=== PATIENT | female | born 1960 | race Caucasian/White ===

== ENCOUNTER 2018-12-27 21:07 | Observation (INO) | payer BC, OTHER ==
[~2018-12-27] VITALS: Ht 165.1 cm; Wt 62.6 kg
[~2018-12-27 21:07] MED LIST: ESTROGEN PO; LISINOPRIL10 MG PO
--- OUTSIDE RECORDS SUMMARY | 2018-12-27 21:10 | XMS REPORT | Clinical Summary ---
Author Author [facility] Address Unknown Phone Unavailable Care Team Providers Care Postdoctoral Fellow Name Role Phone Asked, No Pcp PCP Unavailable Allergies No Known Allergies Medications End Date Status Medication Sig Dispensed Refills Start Date Active DOCOSAHEXANOIC ACID/EPA Take by 0 (FISH OIL ORAL) mouth. Active OMEGA-3S/DHA/EPA/FISH Take by 0 OIL/D3 (VITAMIN-D + mouth. OMEGA-3 ORAL) Active micafungin (MYCAMINE) 100 Infuse into a 0 mg recon soln venous catheter daily. Active lisinopril TK 1 T PO QD 3 (PRINIVIL,ZESTRIL) 20 mg 7 tablet Active amLODIPine (NORVASC) 2.5 TK 1 T PO 3 mg tablet ONCE D 7 Active estradiol (ESTRACE) 0.5 Take 1 tablet 90 tablet 3 MG tabletIndications: (0.5 mg 8 Vasomotor flushing total) by mouth daily. Active PROCTOZONE-HC 2.5 % Insert into 28.35 g 4 rectal creamIndications: the rectum as 8 Hemorrhoids, unspecified needed for hemorrhoid type hemorrhoids. Active Problems Not on file Encounters Care Team Description Date Type Specialty Marylou Jiménez RN History of abnormal mammogram (Primary Dx) 06/09/2018 Orders Only Obstetrics and Gynecology Mago Velázquez RN Breast asymmetry (Primary Dx) 12/27/2017 Telephone Obstetrics and Gynecology after 12/26/2017 Family History Medical History Relation Name Comments Diabetes Father Heart disease Father Hypertension Father Kidney failure Father Migraines Mother Ulcers Mother Relation Name Status Comments Father Mother Social History Date Tobacco Use Types Packs/Day Years Used Never Smoker Smokeless Tobacco: Never Used Alcohol Use Drinks/Week oz/Week Comments Yes RARE Sex Assigned at Date Recorded Not on file Industry Job Start Date Occupation Not on file Not on file Not on file Travel End Travel History Travel Start No recent travel history available. Last Filed Vital Signs Not on file Plan of Treatment Health Maintenance Due Date Last Done Comments CERVICAL CANCER SCREENING 1983 COLON CANCER SCREENING 2012 SHINGLES VACCINES (#1) 2012 INFLUENZA VACCINE 05/24/2018 BREAST CANCER SCREENING 12/01/2019 12/01/2017, 11/22/2016 Results Not on fileafter 12/26/2017 Insurance Payer Benefit Subscriber ID Type Phone Address Plan / Group BCBS BCBS xxxxxxxxxxxx PPO CHOICE PPO/RYDER [place]CALA PPO Advance Directives Patient has advance care planning documents on file. For more information, negro marc contact: Jason Dooley [address] [place] [address]
[2018-12-27] MEDS ORDERED: KETOROLAC TROMETHAMINE 30 MG/ML VIAL IV STA (21:27)
[2018-12-27] MEDS ORDERED: ONDANSETRON HCL INJ 2MG/ML 2ML 2 MG/ML VIAL IV STA (21:27)
[2018-12-27] MEDS ORDERED: SODIUM CHLORIDE 0.9% 1000ML 1,000 ML IV SCH ×3 (21:30→23:45)
--- NOTE | 2018-12-27 22:23 | Diagnostic Imaging Report ---
EXAM: CT Abdomen and Pelvis WITHOUT contrast INDICATION: Left-sided back pain. ^[id number] ^[id number] COMPARISON: None. TECHNIQUE: Abdomen and pelvis were scanned utilizing a multidetector helical scanner from the lung base to the pubic symphysis without administration of IV contrast. Absence of intravenous contrast decreases sensitivity for detection of focal lesions and vascular pathology. Coronal and sagittal reformations were obtained. Routine protocol was performed. IV CONTRAST: None ORAL CONTRAST: Water COMPLICATIONS: None RADIATION DOSE: Total DLP: 488.4 mGy*cm Estimated effective dose: (DLP x 0.015 x size factor) mSv Dose modulation, iterative reconstruction, and/or weight based adjustment of the mA/kV was utilized to reduce the radiation dose to as low as reasonably achievable. FINDINGS: LINES and TUBES: None. LOWER THORAX: Unremarkable HEPATOBILIARY: No focal hepatic lesions. No biliary ductal dilation. GALLBLADDER: No radio-opaque stones or sludge. No wall thickening. SPLEEN: No splenomegaly. PANCREAS: No focal masses or ductal dilatation. ADRENALS: No adrenal nodules KIDNEYS/URETERS: Mild left hydronephrosis secondary to a 0.7 x 0.7 x 0.6 cm stone ureteral pelvic junction with associated inflammatory stranding. Additional nonobstructing 0.2 cm left superior pole and 0.2 cm left inferior pole calculi. No right hydronephrosis or right-sided stones. No cystic or solid mass lesions. GI TRACT: No abnormal distention, wall thickening, or evidence of bowel obstruction. There are diverticula within the colon without evidence of diverticulitis. Appendix is not clearly identified. There is however no fat stranding or adenopathy in the right lower quadrant to suggest appendicitis. PELVIC ORGANS/BLADDER: Hysterectomy. Otherwise, unremarkable. LYMPH NODES: No lymphadenopathy. VESSELS: Unremarkable. PERITONEUM / RETROPERITONEUM: No free air. Fluid and stranding tracking along the left retroperitoneum. BONES: There are degenerative changes in the lumbar spine. SOFT TISSUES: Right gluteal injection granuloma. IMPRESSION: 1. Obstructing 0.7 cm calculus in the left ureteropelvic junction causing mild left hydronephrosis. 2. Additional nonobstructing left renal calculi. 3. Colonic diverticulosis. Signed by: DR. Maurilio Aguirre MD on 12/27/2018 10:20 PM
[2018-12-27] MEDS ORDERED: ULTRAM 50MG50 MG PO (22:32)
[2018-12-27] MEDS ORDERED: KETOROLAC TROME10 MG PO (22:32)
[2018-12-27] MEDS ORDERED: FLOMAX0.4 MG PO (22:32)
[2018-12-27] MEDS ORDERED: ONDANSETRON ODT8 MG PO (22:32)
[2018-12-27] MEDS ORDERED: BACTRIM DS TAB1 EACH PO (23:24)
[2018-12-27] MEDS ORDERED: CEFTRIAXONE SOD 1 GM/NS 50 ML 50 ML IV ONE (23:30)
[2018-12-27] MEDS ORDERED: HYDROCODONE/APAP 5MG-325MG TAB PO ONE (23:30)
[2018-12-28] VITALS (7 sets, daily range): BP systolic 118–182; BP diastolic 74–106
[2018-12-28] MEDS ORDERED: D5.45%NS/KCL 20MEQ 1,000 ML IV SCH (00:07)
--- NOTE | 2018-12-28 01:30 | NUR ---
Admitted to room 182 from [facility] via stretcher. Alert to person, place, time, and situation. Skin warm and intact. c/o 9/10 left flank, stabbing. PERRLA. Cap refill <3 secs, +2 bilateral hand brasswind instrument repairer. +Pedal pulse. Last BM 3/6, brown,formed, hard. Last 2 BM hard. Urine tamra without odor. Abdomen soft and nontender. Bowel sounds active x4. Oriented to room. Bed low and locked. Call simpson within reach. Will continue to monitor.
--- OUTSIDE RECORDS SUMMARY | 2018-12-28 01:40 | XMS REPORT | Clinical Summary ---
Author Author [facility] Address Unknown Phone Unavailable Care Team Providers Care Mandrel Press Hand Name Role Phone Asked, No Pcp PCP [...] Dx) 12/27/2017 Telephone Obstetrics and Gynecology after 12/27/2017 Family History Medical History Relation Name Comments [...] 12/01/2019 12/01/2017, 11/22/2016 Results Not on fileafter 12/27/2017 Insurance Payer Benefit Subscriber ID Type Phone Address Plan / Group BCBS BCBS xxxxxxxxxxxx PPO CHOICE PPO/RYDER ALCALA PPO Advance Directives Patient has advance care planning documents on file. For more information, negro marc contact: Jason Dooley [address] [place] [address]
[2018-12-28] MEDS ORDERED: CRESTOR5 MG (01:48)
[2018-12-28] MEDS ORDERED: AMLODIPINE BESY10 MG PO (01:48)
[2018-12-28] MEDS ORDERED: LISINOPRIL10 MG PO (01:48)
[2018-12-28] MEDS: ONDANSETRON HCL INJ 2MG/ML 2ML 2 MG/ML VIAL IV PRN ×2 (02:00→06:29)
[2018-12-28] MEDS: MORPHINE SULFATE INJ 4 MG/ML INJ 1ML IV PRN ×2 (02:00→06:29)
--- NOTE | 2018-12-28 06:09 | NUR ---
Spoke with Dr. Rodriguez regarding consult for Renal colic.
[2018-12-28] MEDS ORDERED: IOPAMIDOL 610MG/1ML 300 MG/ML VIAL IV ONE (07:51)
[2018-12-28] MEDS ORDERED: BELLADONNA/OPIUM 30 MG SUPP RC ONE (07:51)
[2018-12-28] MEDS ORDERED: AMLODIPINE BESYLATE 10 MG TAB PO SCH (09:00)
[2018-12-28] MEDS ORDERED: LISINOPRIL 10 MG TAB PO SCH (09:00)
--- NOTE | 2018-12-28 11:14 | History and Physical ---
IDENTIFYING DATA: This is a 58-year-old female who comes in with left-sided flank pain. HISTORY OF PRESENTING ILLNESS: Ms. Mechelle Torres with a history of hypertension, hyperlipidemia, was in usual state of health until two days prior to admission, the patient started at night with left-sided flank pain. Drank enough water and knew it was more of a kidney pain and she said she did not pass any stones, came in the emergency room, was found to have a 0.7 cm stone in the left ureter with obstruction and was admitted for pain control and also for left kidney stones. The patient does see a urologist in [place]. PAST MEDICAL HISTORY: History of hypertension, history of hyperlipidemia. PAST SURGICAL HISTORY: Includes history of hysterectomy, history of repair. FAMILY HISTORY: Positive for CAD and carotid artery disease in the family and also CVA in her father. SOCIAL HISTORY: No EtOH, no IV drug abuse, and no history of smoking either. REVIEW OF SYSTEMS: Negative for chest pain. Negative for shortness of breath. Positive for nausea and vomiting. No diarrhea. No constipation. No rectal bleeding. No hematochezia. No hematemesis. No hematuria either. PHYSICAL EXAMINATION: VITAL SIGNS: Temperature is 98.6, pulse of 77, blood pressure is 160/95, pulse oximetry of 97% on room air. HEENT: Normocephalic, atraumatic. No icterus present. CVS: S1, S2 normal. Regular rhythm. ABDOMEN: Tender in the left flank and also in the left lower quadrant. BACK: Positive CVA tenderness on the left flank. EXTREMITIES: No clubbing, no cyanosis, no edema. LABORATORY VALUES: From the ER shows urine drug screen was negative. UA showed blood moderate, protein trace, leukocyte esterase trace also. The patient's CT scan did show 0.7 cm obstructing calculus in the ureter. The patient also had some nonobstructing 0.2 cm left superior pole and left inferior pole calculi. No right hydronephrosis or left hydronephrosis present and the stone was in the ureteropelvic junction. GI tract was normal. The patient also had colonic diverticulosis on the CT scan. ASSESSMENT: 1. Urinary tract infection. The patient is currently on Rocephin. We will continue on that. 2. History of obstructing renal calculus with renal colic on the left ureteropelvic junction. Urology consult is being called. 3. Hypertension. We will restart her home medications. 4. Hyperlipidemia. We will restart her home medication. Toradol 15 mg q.6 hours for pain control and also morphine has already been in place. Continue monitoring the patient. Further recommendation per clinical course and also recommendation per Urology. MD CHARBEL Faust/MOOKIE /[id number]
[2018-12-28] MEDS ORDERED: FENTANYL CITRATE/PF 100MCG/2 ML INJ ONE (13:38)
--- NOTE | 2018-12-28 13:40 | NUR ---
SOCIAL WORK INITIAL ASSESSMENT Customer Data Technician to bedside to discuss plan of care with patient/family. CM/SW role and care transitions discussed. Anticipated discharge plan discussed along with duration of care. CM/SW discussed patients right to make decisions in care. CM/SW work hours given. 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 Name and number was also written on the patients whiteboard. Patient verbalized understanding of discussion. CM will follow-up with ongoing discharge and transition of care needs.
--- NOTE | 2018-12-28 14:05 | Consultation ---
DATE OF CONSULTATION: 12/28/2018 Urology Consultation REASON FOR CONSULTATION: Renal colic. HISTORY OF PRESENT ILLNESS: Mechelle Torres is a 58-year-old woman who had a previous bout of renal colic approximately eight years ago. She saw a urologist. The urologist told her the stone was too small to do anything about, her pain resolved and she was not instructed to follow up. The patient had severe left-sided flank pain and reported to the emergency room last night, was admitted for obstructive uropathy. She denies dysuria or hematuria. She reports urge-type urinary incontinence and to a lesser degree mild stress-type urinary incontinence. She has never had any urological surgery. She denies problems with recurrent urinary tract infections and denies any dysuria at the present time. PAST MEDICAL AND PAST SURGICAL HISTORY: 1. Status post total abdominal hysterectomy, bilateral salpingo-oophorectomy. 2. Status post tonsillectomy. 3. Status post lip surgery with reconstruction. 4. Status post bilateral Achilles tendon repair. 5. Hypertension followed, managed by Dr. Aleksandr Medrano (wash house worker). CURRENT MEDICATIONS: Please refer the MAR. ALLERGIES: NONE KNOWN. SOCIAL HISTORY: The patient denies smoking, ethanol, and drug use. 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 FAMILY HISTORY: Significant for heart disease. REVIEW OF SYSTEMS: Consistent with the above history of present illness and past medical history, otherwise negative for all systems. PHYSICAL EXAMINATION: GENERAL: Very pleasant, healthy 58-year-old woman, lying in bed, no apparent distress. She is currently afebrile. VITALS SIGNS: Currently stable. ABDOMEN: Soft, nondistended, nontender without costovertebral angle tenderness. Kidneys are not palpable, without hepatosplenomegaly. No obvious evidence of hernia. EXTREMITIES: There is mild left-sided flank pain to deep palpation. For the remaining physical examination and systems, please refer to admission history and physical in the chart. LABORATORY STUDIES: White blood cell count is 8600, hemoglobin 13.7, platelets 347,000. The patient's creatinine is normal at 0.69. Urinalysis is not in the computer. According to the emergency room physician, who I discussed the case with. He reported to me that there was mild leukocyte esterase. He ordered a urine culture, but it is not pending in the computer at this time. CT scan of the abdomen and pelvis was done as a stone protocol. It reveals left-sided hydronephrosis due to a 7 mm stone in the ureteropelvic junction with inflammatory stranding. There were additional 2 mm stones in the same kidney that are nonobstructing. ASSESSMENT: 1. Left renal colic. 2. Left proximal ureterolithiasis. 3. Left nonobstructing nephrolithiasis. 4. Left hydronephrosis due to stone. 5. Mixed-type urinary incontinence. PLAN: 1. Intravenous antibiotics. 2. Analgesics. 3. I will post the patient to the operating room for cystoscopy and stent placement. 4. The patient needs ongoing urological followup, stone management as well as metabolic stone workup for stone prevention and ongoing lifelong urological followup. Thank you very much for involving us in the care of your patient. We will be happy to follow her along with you as well as an outpatient. MD DAT Márquez/MOOKIE /[id number]
[2018-12-28] MEDS ORDERED: SEVOFLURANE INHAL SOLN 250 ML PEN BTL ONE (14:24)
[2018-12-28] MEDS ORDERED: DEXAMETHASONE SOD PHOS INJ 4 MG/ML VIAL ONE (14:24)
[2018-12-28] MEDS ORDERED: PROPOFOL IV EMULSION 10 MG/ML 20 ML VIAL ONE (14:24)
[2018-12-28] MEDS ORDERED: ONDANSETRON HCL INJ 2MG/ML 2ML 2 MG/ML VIAL ONE (14:24)
[2018-12-28] MEDS ORDERED: KETOROLAC TROMETHAMINE 30 MG/ML VIAL ONE (14:24)
--- NOTE | 2019-02-03 08:51 | Discharge Summary ---
HISTORY OF PRESENT ILLNESS: The patient came with urinary tract infection, started on Rocephin, history of obstructing renal calculi. A consult with Dr. Rodriguez was done. Hypertension, continued home medication. Hyperlipidemia, continue with home medication. Toradol 50 mg q.6 hours was given for pain. The patient was taken to the OR and a stent was placed in. The patient had a left ureteral stent. The patient was discharged home in a stable condition after this was done. The patient is to follow up with Dr. Rodriguez on a later date. FINAL DIAGNOSES: 1. Urinary tract infection. 2. Left hydronephrosis. 3. Left-sided urolithiasis. 4. Urinary tract infection. 5. Hypertension. 6. Hyperlipidemia. For further information, look in the chart. For medicines on discharge, look in the medical reconciliation sheet. MD CHARBEL Faust/MODL /[id number]
--- NOTE | 2019-02-19 14:54 | Operative Report ---
DATE OF PROCEDURE: 12/28/2018 SURGEON: Ryan Rodriguez MD PREOPERATIVE DIAGNOSES: 1. Left hydronephrosis due to stone. 2. Urinary tract infection. POSTOPERATIVE DIAGNOSES: 1. Left hydronephrosis due to stone. 2. Urinary tract infection. 3. Mild cystocele. 4. Urethral hypermobility. 5. Atrophic (senile) vaginitis. 6. Urethral stenosis. OPERATIONS PERFORMED: 1. Cystourethroscopy with calibration and dilation of urethral stenosis (separate procedure performed for the urethral stenosis). 2. Cystourethroscopy with bilateral ureteral catheterization and retrograde ureteropyelography (separate procedure performed for urinary tract infections). 3. Interpretation of retrograde ureteropyelography. 4. Supervision of fluoroscopy, no radiologist present. 5. Cystourethroscopy with insertion of left indwelling ureteral stent (separate procedure performed for diagnosis of hydronephrosis). 6. Pelvic examination under anesthesia. ANESTHESIA: General. COMPLICATIONS: None. CLINICAL SUMMARY: Mechelle Torres is a 58-year-old woman with the above preoperative diagnoses. Please refer to consultation dictation from the same date. OPERATIVE PROCEDURE IN DETAIL: Informed consent was verified. eMchelle Torres was preoperatively identified, taken to the operating room, placed on the cystoscopy table in supine position. Anesthesia was uneventfully begun. The cystoscope sheath with obturator in place could not be easily placed and the patient's urethra was then calibrated to approximately 18-Slovenian in size and gently dilated to 26-Slovenian in size without any significant bleeding. The cystoscope sheath was then easily inserted in the patient's urethra and the bladder was drained. Panendoscopy revealed mild trabeculations, but no tumors, no stones, and no diverticula. Normally positioned, configured ureteral orifices were identified. Ureteral catheter was used to cannulate each ureter and retrograde ureteropyelography was performed. Interpretation of retrograde ureteropyelography: Contrast was instilled in a retrograde fashion bilaterally. The right side was unremarkable. There were no tumors, no visible stones, no hydronephrosis, no obstruction. The left had exhibited an obstruction at the proximal ureter with significant hydroureteronephrosis with pyelosinus backflow noted consistent with a high-grade obstruction. With cystoscope and fluoroscopic guidance, a left-sided indwelling ureteral stent was then placed. It was coiled in the patient's left kidney as well as the patient's bladder. The retaining sutures were cut short. Pelvic examination under anesthesia revealed mild grade 1 cystocele with urethral hypermobility and atrophic (senile) vaginitis. No abnormal palpable pelvic masses could be appreciated. There were no obvious mucosal lesions. The patient was then uneventfully reversed from anesthesia and taken to recovery room in stable condition. There were no complications at end of the procedure. She tolerated the procedure well. Plans will be to follow the patient up as an outpatient basis to perform a left ESWL. A tertiary procedure will be required to remove her stent and render her stent free and stone free. Ryan MD DAT Rodriguez/MOOKIE /[id number]
== END 2018-12-28 13:25 | disposition home or self-care (01) ==
LOC: FSED 21:07 → ERHOLD 12-28 00:07 → IMCU 12-28 01:38
PROVIDERS: ADMIT Family Medicine; ATTEND Family Medicine
DX: N13.6 Pyonephrosis (principal); I10 Essential (primary) hypertension; E78.5 Hyperlipidemia, unspecified; Z82.49 Family history of ischemic heart disease and other diseases of the circulatory system; Z82.3 Family history of stroke; N39.46 Mixed incontinence; N81.10 Cystocele, unspecified; N36.41 Hypermobility of urethra; N95.2 Postmenopausal atrophic vaginitis; N35.92 Unspecified urethral stricture, female
CPT/HCPCS: 52281; 52332; 74176; 74420; 80053; 81003; 85025; 87086; 99284; C1758 ×2; C2617; G0378; J1100; J1885 ×2; J2270; J2405 ×2; J2704; J7030; Q9967

== ENCOUNTER → 2019-06-21 | Outpatient (CLI) | payer OTHER ==
[~2019-06-21] MED LIST changes: +AMLODIPINE BESY10 MG PO; +BACTRIM DS TAB1 EACH PO; +CRESTOR5 MG; +FLOMAX0.4 MG PO; +KETOROLAC TROME10 MG PO; +ONDANSETRON ODT8 MG PO; +ULTRAM 50MG50 MG PO
--- NOTE | 2019-06-21 16:44 | Diagnostic Imaging Report ---
Exam: KUB Clinical history: Nephrolithiasis Comparison: CT abdomen and pelvis, December 27, 2018 Findings: The bowel gas obscures the left renal shadow. No radiopaque stones are noted. There is nonobstructive bowel gas pattern. The regional osseous structures are unremarkable. Impression: 1. No radiographic evidence of nephrolithiasis. Signed by: Dr. Ervin Batista MD on 06/21/2019 4:40 PM
== END ==
LOC: RAD 15:49
PROVIDERS: ATTEND Urology
DX: N20.0 Calculus of kidney (principal)
CPT/HCPCS: 74018

== ENCOUNTER → 2019-09-21 | Outpatient (CLI) | payer OTHER ==
--- NOTE | 2019-09-21 11:27 | Diagnostic Imaging Report ---
Exam: KUB - 2 views Indication: Renal calculus Comparison: KUB of 06/21/2019 Findings: No radiographically apparent renal calculi. Nonobstructive bowel gas pattern. No free air. Osseous structures appear unremarkable. Partially visualized lung bases appear clear. Impression: No radiographically apparent renal calculi. Signed by: Vladislav George MD on 09/21/2019 11:23 AM
== END ==
LOC: RAD 10:19
PROVIDERS: ATTEND Urology
DX: N20.0 Calculus of kidney (principal)
CPT/HCPCS: 74018

== ENCOUNTER → 2021-01-05 | Outpatient (CLI) | payer OTHER | LOC: RAD 09:25 | PROVIDERS: ATTEND Urology | DX: N20.0 Calculus of kidney (principal) | CPT/HCPCS: 74018 ==

== ENCOUNTER → 2022-01-06 | Outpatient (CLI) | payer OTHER | LOC: RAD 10:51 | PROVIDERS: ATTEND Urology | DX: N20.0 Calculus of kidney (principal) | CPT/HCPCS: 74018 ==

== ENCOUNTER → 2022-11-09 | Outpatient (CLI) | payer OTHER | LOC: RAD 07:16 | PROVIDERS: ATTEND Urology | DX: N20.0 Calculus of kidney (principal) | CPT/HCPCS: 74018 ==

== ENCOUNTER → 2023-11-07 | Outpatient (REF) | payer OTHER | LOC: RAD 08:07 | PROVIDERS: ATTEND Urology | DX: N02.0 Recurrent and persistent hematuria with minor glomerular abnormality (principal) | CPT/HCPCS: 74018 ==

== ENCOUNTER → 2025-01-09 | Outpatient (REF) | payer OTHER | LOC: RAD 07:22 | PROVIDERS: ATTEND Urology | DX: N20.0 Calculus of kidney (principal) | CPT/HCPCS: 74018 ==